=== PATIENT | male | born 1975 | race Caucasian/White ===

== ENCOUNTER 2018-02-17 23:37 | Emergency (ER) | payer OTHER ==
[~2018-02-17] VITALS: Ht 175.3 cm; Wt 90.7 kg
[2018-02-17 23:44] VITALS: BP_SYST 150
[2018-02-17] MEDS ORDERED: PREDNISONE 20 MG TABLET PO ONE (23:45)
[2018-02-17] MEDS ORDERED: DIPHENHYDRAMINE HCL 25 MG CAPSULE PO ONE (23:45)
[2018-02-17] MEDS ORDERED: IBUPROFEN 800 MG TABLET PO ONE (23:45)
--- NOTE | 2018-02-17 23:45 | NUR ---
Pt suffered a bee sting on his R foot. Will continue to monitor. No distress noted. AAOx4.
--- NOTE | 2018-02-17 23:45 | NUR ---
Patient to ER bed 8 to gown for evaluation. Side rails up. Report given to Bull NEGRON.
--- NOTE | 2018-02-17 23:45 | NUR ---
Dr Gomez at bedside to evaluate patient.
[2018-02-18 00:15] VITALS: BP_SYST 150
--- NOTE | 2018-02-18 00:15 | NUR ---
Patient given written and verbal discharge instructions and verbalizes understanding. ER MD discussed with patient the results and treatment provided. Patient in stable condition. ID arm band removed. Rx of Ibuprofen, Epi pen, prednisone, and benadryl given. Patient educated on pain management and to follow up with PMD. Pain Scale 2/10. Opportunity for questions provided and answered. Medication side effect fact sheet provided.
== END 2018-02-18 00:15 | disposition home or self-care (01) ==
LOC: SED 23:37
DX: T63.441A Toxic effect of venom of bees, accidental (unintentional), initial encounter (principal); M79.671 Pain in right foot; Y92.832 Beach as the place of occurrence of the external cause
CPT/HCPCS: 99284; J7512; Q0163